=== PATIENT | female | born 1965 | race Caucasian/White ===

== ENCOUNTER → 2021-02-28 | Outpatient (CLI) | payer OTHER ==
[~2021-02-28] MED LIST: PREDNISONE20 MG PO; VIBRAMYCIN100 MG PO
== END ==
LOC: KOH-I 08:22
DX: M51.36 Other intervertebral disc degeneration, lumbar region (principal)
CPT/HCPCS: 72040; 72100

== ENCOUNTER → 2021-04-02 | Outpatient (CLI) | payer OTHER | LOC: HEART 5 10:13 | DX: R55 Syncope and collapse (principal) ==

== ENCOUNTER → 2021-04-07 | Outpatient (CLI) | payer OTHER | LOC: HEART 5 13:29 | DX: R55 Syncope and collapse (principal); I51.9 Heart disease, unspecified | CPT/HCPCS: 93306 ==